=== PATIENT | male | born 1995 | race African-American/Black ===

== ENCOUNTER 2017-03-30 22:49 | Emergency (ER) | payer SELFPAY ==
[~2017-03-30] VITALS: Ht 182.9 cm; Wt 91.0 kg
[2017-03-31] MEDS ORDERED: BACITRACIN ZINC OINT UDPKT TOP ONE ×2 (02:30→03:00)
[2017-03-31] MEDS ORDERED: LIDOCAINE HCL 1% 20ML VIAL (Pyxis) INJ INFIL ONE (03:00)
[2017-03-31] MEDS ORDERED: TETANUS, DIPHTHERIA, PERTUSSIS VAC/PF 0.5ML (>7YR OLD) IM ONE (05:15)
[2017-03-31 06:27] VITALS: BP 136/78
== END 2017-03-31 06:30 | disposition home or self-care (01) ==
LOC: ER 22:50
DX: S01.112A Laceration without foreign body of left eyelid and periocular area, initial encounter (principal); S61.011A Laceration without foreign body of right thumb without damage to nail, initial encounter; S00.83XA Contusion of other part of head, initial encounter; F17.210 Nicotine dependence, cigarettes, uncomplicated; F12.10 Cannabis abuse, uncomplicated; J32.9 Chronic sinusitis, unspecified; Y00.XXXA Assault by blunt object, initial encounter; Y93.89 Activity, other specified; Y92.89 Other specified places as the place of occurrence of the external cause
CPT/HCPCS: 12001; 12011; 70450; 70486; 73130; 99284; A4217; J3490; Z7610

== ENCOUNTER 2017-04-05 13:50 | Emergency (ER) | payer SELFPAY ==
[~2017-04-05] VITALS: Ht 182.9 cm; Wt 88.0 kg
[2017-04-05 17:44] VITALS: BP 120/81
== END 2017-04-05 18:06 | disposition home or self-care (01) ==
LOC: ER 17:54
DX: S61.411D Laceration without foreign body of right hand, subsequent encounter (principal); S01.112D Laceration without foreign body of left eyelid and periocular area, subsequent encounter; F17.200 Nicotine dependence, unspecified, uncomplicated; F12.10 Cannabis abuse, uncomplicated; J45.909 Unspecified asthma, uncomplicated; X58.XXXD Exposure to other specified factors, subsequent encounter; Y92.89 Other specified places as the place of occurrence of the external cause; Y99.8 Other external cause status
CPT/HCPCS: 99283; Z7610